=== PATIENT | male | born 1955 | race Caucasian/White ===

== ENCOUNTER 2024-01-02 04:48 | Emergency (ER) | payer MEDICARE, OTHER ==
[2024-01-02] MEDS: Ondansetron 4 MG/2 ML SDV IVPUSH ONE (05:21)
[2024-01-02] MEDS: Ketorolac 30 MG/ML SDV IVPUSH ONE (05:21)
[2024-01-02] MEDS: Sodium Chloride 0.9% 10 ML Syringe FLUSH PRN (05:21)
[2024-01-02 05:31] LABS: APPEARANCE,URINE CLEAR (Clear); BILIRUBIN,URINE NEGATIVE (Negative); COLOR,URINE YELLOW (Yellow); GLUCOSE,URINE NEGATIVE (Negative); KETONES,URINE NEGATIVE (Negative); LEUKOCYTE ESTERASE,URINE NEGATIVE (Negative); NITRITE,URINE NEGATIVE (Negative); OCCULT BLOOD,URINE 2+ (Negative); PH,URINE 5.5 (5.0-8.0); PROTEIN,URINE NEGATIVE (Negative); UROBILINOGEN,URINE 0.2 (0.2-1.0)
[2024-01-02 05:43] LABS: BASOPHILS ABSOLUTE AUTO 0.1 K/mm3 (0.0-0.2); BASOPHILS PERCENT AUTO 0.6 % (0.0-1.0); EOSINOPHILS ABSOLUTE AUTO 0.3 K/mm3 (0.0-0.4); EOSINOPHILS PERCENT AUTO 4.2 % (0.0-6.0); HEMATOCRIT 44.2 % (42.0-52.0); HEMOGLOBIN 15.1 gm/dl (14.0-18.0); IMMATURE GRAN ABSOLUTE AUTO 0.03 K/mm3 (0.00-0.05); IMMATURE GRAN PERCENT AUTO 0.4 % (0.0-0.4); LYMPHOCYTES ABSOLUTE AUTO 2.6 K/mm3 (1.0-4.8); LYMPHOCYTES PERCENT AUTO 31.1 % (24.0-44.0); MEAN CORPUSCULAR HEMOGLOBIN 30.6 pg (28.0-32.0); MEAN CORPUSCULAR HGB CONC 34.2 g/dl (32.0-36.0); MEAN CORPUSCULAR VOLUME 89.5 fl (83.0-99.0); MEAN PLATELET VOLUME 9.3 fl (9.4-12.4); MONOCYTES ABSOLUTE AUTO 0.7 K/mm3 (0.0-0.8); MONOCYTES PERCENT AUTO 8.5 % (0.0-8.0); NEUTROPHILS ABSOLUTE AUTO 4.5 K/mm3 (1.8-7.7); NEUTROPHILS PERCENT AUTO 55.2 % (41.0-71.0); PLATELET COUNT,PLT 190 K/mm3 (150-400); RED BLOOD CELL COUNT 4.94 M/mm3 (4.52-5.90); WHITE BLOOD CELL COUNT,WBC 8.19 K/mm3 (3.9-11.3)
[2024-01-02 05:47] LABS: BACTERIA,URINE FEW /hpf (FEW); EPITHELIAL CELLS,URINE NOT SEEN /hpf (0-5); HYALINE CASTS,URINE 0-5 /lpf (0-5); MUCUS,URINE FEW /hpf (FEW); RBC,URINE 20-30 /hpf (0-5); WBC,URINE 0-5 /hpf (0-5)
[2024-01-02 05:51] LABS: A/G RATIO 1.1 (1-2); ALBUMIN 3.7 g/dl (3.4-5.0); ANION GAP 15.4 (5-15); BILIRUBIN TOTAL 0.5 mg/dL (0.2-1.0); BUN/CREATININE RATIO 15.7 (14-18); C-REACTIVE PROTEIN 0.38 mg/dL (<0.30); CALCIUM 8.8 mg/dL (8.5-10.1); CREATININE 1.4 mg/dL (0.7-1.3); EST CRCL DRUG DOSING (CG) 52.87 mL/min; MAGNESIUM 1.9 mg/dL (1.8-2.4); POTASSIUM,K 4.4 mEq/L (3.5-5.1); PROTEIN TOTAL,TP 7.1 g/dl (6.4-8.2)
[2024-01-02] MEDS: Tamsulosin 0.4 MG Cap.ER PO ONE (06:30)
== END 2024-01-02 06:51 | disposition home or self-care (01) ==
LOC: JD.ED 04:48
DX: N13.2 Hydronephrosis with renal and ureteral calculous obstruction (principal); Z79.899 Other long term (current) drug therapy; Z88.0 Allergy status to penicillin
CPT/HCPCS: 36415; 74176; 80053; 81001; 83690; 83735; 85025; 86140; 96374; 96375; 99284; A9270; J1885; J2405; J3490

== ENCOUNTER 2024-02-24 20:53 | Emergency (ER) | payer MEDICARE, OTHER ==
[2024-02-24 21:51] LABS: BASOPHILS PERCENT AUTO 0.1 % (0.0-1.0); HEMATOCRIT 44.4 % (42.0-52.0); HEMOGLOBIN 14.8 gm/dl (14.0-18.0); IMMATURE GRAN ABSOLUTE AUTO 0.03 K/mm3 (0.00-0.05); IMMATURE GRAN PERCENT AUTO 0.3 % (0.0-0.4); LYMPHOCYTES ABSOLUTE AUTO 0.7 K/mm3 (1.0-4.8); LYMPHOCYTES PERCENT AUTO 7.5 % (24.0-44.0); MEAN CORPUSCULAR HEMOGLOBIN 30.3 pg (28.0-32.0); MEAN CORPUSCULAR HGB CONC 33.3 g/dl (32.0-36.0); MEAN PLATELET VOLUME 9.5 fl (9.4-12.4); MONOCYTES ABSOLUTE AUTO 0.4 K/mm3 (0.0-0.8); MONOCYTES PERCENT AUTO 3.8 % (0.0-8.0); NEUTROPHILS ABSOLUTE AUTO 8.1 K/mm3 (1.8-7.7); NEUTROPHILS PERCENT AUTO 88.3 % (41.0-71.0); PLATELET COUNT,PLT 179 K/mm3 (150-400); RED BLOOD CELL COUNT 4.88 M/mm3 (4.52-5.90); WHITE BLOOD CELL COUNT,WBC 9.21 K/mm3 (3.9-11.3)
[2024-02-24] MEDS: Ketorolac 30 MG/ML SDV IVPUSH ONE (21:55)
[2024-02-24 22:04] LABS: APPEARANCE,URINE CLOUDY (Clear); BILIRUBIN,URINE NEGATIVE (Negative); COLOR,URINE DARK YELLOW (Yellow); GLUCOSE,URINE 1+ (Negative); KETONES,URINE NEGATIVE (Negative); LEUKOCYTE ESTERASE,URINE TRACE (Negative); NITRITE,URINE NEGATIVE (Negative); OCCULT BLOOD,URINE 3+ (Negative); PROTEIN,URINE 3+ (Negative); UROBILINOGEN,URINE 0.2 (0.2-1.0)
[2024-02-24 22:13] LABS: ALBUMIN 3.5 g/dl (3.4-5.0); ANION GAP 11.5 (5-15); BILIRUBIN TOTAL 0.8 mg/dL (0.2-1.0); BUN/CREATININE RATIO 11.3 (14-18); C-REACTIVE PROTEIN 0.48 mg/dL (<0.30); CALCIUM 9.2 mg/dL (8.5-10.1); CREATININE 1.6 mg/dL (0.7-1.3); EST CRCL DRUG DOSING (CG) 46.26 mL/min; MAGNESIUM 1.9 mg/dL (1.8-2.4); POTASSIUM,K 4.5 mEq/L (3.5-5.1); PROTEIN TOTAL,TP 6.9 g/dl (6.4-8.2)
[2024-02-24 22:27] LABS: BACTERIA,URINE MODERATE /hpf (FEW); RBC,URINE >100 /hpf (0-5); SQUAMOUS EPITHELIAL CELLS,UR 0-5 /hpf (0-5)
[2024-02-24 22:28] LABS: MUCUS,URINE FEW /hpf (FEW); YEAST BUDDING,URINE FEW (NOT SEEN)
== END 2024-02-24 23:51 | disposition home or self-care (01) ==
LOC: JD.ED 20:53
DX: N36.8 Other specified disorders of urethra (principal); Z88.0 Allergy status to penicillin
CPT/HCPCS: 36415; 74176; 80053; 81001; 83690; 83735; 85025; 86140; 87086; 96374; 99284; J1885; 99283

== ENCOUNTER 2025-06-13 08:32 | Emergency (ER) | payer MEDICARE, OTHER ==
[2025-06-13] MEDS ORDERED: Sodium Chloride 0.9% 10 ML Syringe FLUSH PRN (08:50)
[2025-06-13] MEDS: Ondansetron 4 MG/2 ML SDV IVPUSH ONE (08:57)
[2025-06-13] MEDS: Ketorolac 30 MG/ML SDV IVPUSH ONE (09:00)
[2025-06-13 09:04] LABS: APPEARANCE,URINE CLEAR (Clear); GLUCOSE,URINE NEGATIVE (Negative); OCCULT BLOOD,URINE 2+ (Negative)
[2025-06-13 09:19] LABS: BASOPHILS ABSOLUTE AUTO 0.0 K/mm3 (0.0-0.2); BASOPHILS PERCENT AUTO 0.3 % (0.0-1.0); EOSINOPHILS ABSOLUTE AUTO 0.1 K/mm3 (0.0-0.4); EOSINOPHILS PERCENT AUTO 1.1 % (0.0-6.0); IMMATURE GRAN ABSOLUTE AUTO 0.04 K/mm3 (0.00-0.05); IMMATURE GRAN PERCENT AUTO 0.4 % (0.0-0.4); LYMPHOCYTES ABSOLUTE AUTO 1.0 K/mm3 (1.0-4.8); LYMPHOCYTES PERCENT AUTO 9.4 % (24.0-44.0); MEAN PLATELET VOLUME 9.1 fl (9.4-12.4); MONOCYTES ABSOLUTE AUTO 0.8 K/mm3 (0.0-0.8); MONOCYTES PERCENT AUTO 8.0 % (0.0-8.0); NEUTROPHILS ABSOLUTE AUTO 8.2 K/mm3 (1.8-7.7); NEUTROPHILS PERCENT AUTO 80.8 % (41.0-71.0); NRBC ABSOLUTE 0.00 (0.00-0.02); NRBC PERCENT 0.0 % (0.0-0.2); PLATELET COUNT,PLT 169 K/mm3 (150-400); RED BLOOD CELL COUNT 3.98 M/mm3 (4.52-5.90); WHITE BLOOD CELL COUNT,WBC 10.18 K/mm3 (3.9-11.3)
[2025-06-13 09:42] LABS: A/G RATIO 1.1 (1-2); ALANINE AMINOTRANSFERASE,ALT 24.0 U/L (16-63); ASPARTATE AMNIOTRANSFERASE,AST 20.0 U/L (15-37); BILIRUBIN TOTAL 0.8 mg/dL (0.2-1.0); BLOOD UREA NITROGEN,BUN 21.0 mg/dL (7-18); CARBON DIOXIDE,CO2 26.0 mEq/L (21-32); CHLORIDE,CL 111.0 mEq/L (98-107); CREATININE 1.5 mg/dL (0.7-1.3); EST CRCL DRUG DOSING (CG) 47.13 mL/min; ESTIMATED GFR 50.0 mL/min (>60); GLUCOSE RANDOM 142.0 mg/dL (70-99); POTASSIUM,K 3.8 mEq/L (3.5-5.1); PROTEIN TOTAL,TP 6.3 g/dl (6.4-8.2)
[2025-06-13 09:45] LABS: SODIUM,NA 146.0 mEq/L (136-145)
== END 2025-06-13 10:41 | disposition home or self-care (01) ==
LOC: JD.ED 08:32
DX: N13.2 Hydronephrosis with renal and ureteral calculous obstruction (principal); Z88.0 Allergy status to penicillin; Z79.899 Other long term (current) drug therapy
CPT/HCPCS: 36415; 74176; 80053; 81001; 83690; 85025; 96361; 96374; 96375; 99284; J2405; J7030; J1171; J1885